=== PATIENT | male | born 1990 ===

== ENCOUNTER → 2022-07-30 | Emergency (ER) ==
[~2022-07-30] MED LIST: Diphtheria,Pertussis(Acell),Tetanus Vaccine 0.5 ML Syringe IM ONE; Ketorolac 30 MG/ML SDV IVPUSH ONE; Lidocaine 1% 5 ML VIAL INFILT ONE; Octyl 2-Cyanoacrylate 1 g/1 mL 1 APPLIC PEN TOP ONE
== END | disposition home or self-care (01) ==
LOC: MW.ED 02:03
DX: S91.311A Laceration without foreign body, right foot, initial encounter (principal); M72.2 Plantar fascial fibromatosis; Z88.0 Allergy status to penicillin; W26.8XXA Contact with other sharp object(s), not elsewhere classified, initial encounter
CPT/HCPCS: 12002; 73630; 90471; 90715; 99283; J1885; 96372